=== PATIENT | male | born 1955 | race Caucasian/White ===

== ENCOUNTER 2023-01-18 12:56 | Outpatient (CLI) | payer MEDICARE, OTHER ==
[~2023-01-18 12:56] MED LIST: Iopamidol 370 76% 100 ML VIAL ONE
== END 2023-01-18 12:57 | disposition home or self-care (01) ==
LOC: ULT 12:56
PROVIDERS: ATTEND Urology
DX: C64.2 Malignant neoplasm of left kidney, except renal pelvis (principal); N43.3 Hydrocele, unspecified; K57.30 Diverticulosis of large intestine without perforation or abscess without bleeding; K43.9 Ventral hernia without obstruction or gangrene; Z90.5 Acquired absence of kidney
CPT/HCPCS: 71046; 74177; 76870; 82565; 93976; Q9967

== ENCOUNTER → 2023-05-05 | Outpatient (CLI) | payer MEDICARE, OTHER | LOC: PET 11:45 | PROVIDERS: ATTEND Internal Medicine Hematology & Oncology | DX: C16.3 Malignant neoplasm of pyloric antrum (principal) | CPT/HCPCS: 78815; A9552 ==

== ENCOUNTER 2023-05-31 17:55 | Inpatient (IN) | payer MEDICARE, OTHER ==
[2023-05-31] MEDS ORDERED: Aspirin Chewable 81 MG TAB ONE (18:30)
[2023-05-31] MEDS ORDERED: fentaNYL 50 mcg/mL 1 mL Vial ONE (18:37)
[2023-05-31] MEDS ORDERED: Ondansetron PF 4 MG/2 ML Vial ONE (18:37)
[2023-05-31 18:49] LABS: #Monocytes 1.4 thou/uL (0.11-0.59); #Neutrophils 6.4 thou/uL (1.40-6.50); %Basophils 0.1 % (0.0-1.0); %Lymphocytes 19.8 % (21.0-51.0); %Monocytes 14.6 % (0.0-10.0); %Neutrophils 65.1 % (42.0-75.0); Hemoglobin 13.7 g/dL (14.0-18.0); Mean Corpuscular HGB CONC 32.6 g/dL (32.0-36.0); Mean Corpuscular Hemoglobin 30.8 pg (27.0-31.0); Mean Corpuscular Volume 94.4 fl (78.0-98.0); Mean Platelet Volume 10.1 fL (7.4-10.4); Platelet Count 203 10x3/uL (130-400); RBC Distribution Width 13.5 % (11.5-14.5); Red Blood Cell (RBC) Count 4.45 mill/uL (4.70-6.10); White Blood Cell (WBC) Count 9.8 10x3/uL (4.8-10.8)
[2023-05-31 19:27] LABS: Anion Gap 14 mmol/L (10-20); BUN (Urea Nitrogen) 26 mg/dL (8.4-25.7); Calc. Creatinine Clearance 0 mL/min (70-130); Calcium 8.9 mg/dL (7.8-10.44); Carbon Dioxide 29 mmol/L (23-31); Chloride 101 mmol/L (98-107); Estimated GFR 64; Glucose 150 mg/dL (80-115); Potassium 3.8 mmol/L (3.5-5.1); Sodium 140 mmol/L (136-145)
[2023-05-31 19:31] LABS: Troponin I 0.081 ng/mL (< 0.028)
[2023-05-31] MEDS ORDERED: Ondansetron ODT 4 MG TAB SL PRN (19:45)
[2023-05-31] MEDS ORDERED: Nitroglycerin 50 MG/250 ML BOT 250 ML IVPB SCH (19:45)
[2023-05-31] MEDS ORDERED: Acetaminophen 325 MG TAB PO PRN ×2 (19:45→20:28)
[2023-05-31] MEDS ORDERED: Ondansetron PF 4 MG/2 ML Vial IVP PRN (19:45)
[2023-05-31] MEDS ORDERED: Senokot S 8.6-50 MG TAB PO PRN (20:28)
[2023-05-31] MEDS ORDERED: Ondansetron ODT 4 MG TAB PO PRN (20:28)
[2023-05-31] MEDS ORDERED: Enoxaparin 100 MG (1 mL) SYRINGE ONE (21:48)
[2023-05-31 23:32] LABS: Troponin I 0.096 ng/mL (< 0.028)
[2023-05-31] MEDS: Famotidine 20 MG TAB PO SCH (23:50)
[2023-06-01 03:45] LABS: #Monocytes 1.1 thou/uL (0.11-0.59); %Basophils 0.1 % (0.0-1.0); %Lymphocytes 24.3 % (21.0-51.0); %Monocytes 16.6 % (0.0-10.0); %Neutrophils 58.7 % (42.0-75.0); Hematocrit 37.3 % (42.0-52.0); Hemoglobin 12.4 g/dL (14.0-18.0); Mean Corpuscular HGB CONC 33.2 g/dL (32.0-36.0); Mean Corpuscular Hemoglobin 31.6 pg (27.0-31.0); Mean Corpuscular Volume 95.2 fl (78.0-98.0); Mean Platelet Volume 10.2 fL (7.4-10.4); Platelet Count 162 10x3/uL (130-400); RBC Distribution Width 13.7 % (11.5-14.5); Red Blood Cell (RBC) Count 3.92 mill/uL (4.70-6.10); White Blood Cell (WBC) Count 6.8 10x3/uL (4.8-10.8)
[2023-06-01 04:12] LABS: Troponin I 0.106 ng/mL (< 0.028)
[2023-06-01 04:13] LABS: Anion Gap 15 mmol/L (10-20); BUN (Urea Nitrogen) 31 mg/dL (8.4-25.7); Calc. Creatinine Clearance 78 mL/min (70-130); Calcium 8.4 mg/dL (7.8-10.44); Carbon Dioxide 28 mmol/L (23-31); Chloride 103 mmol/L (98-107); Estimated GFR 52; Glucose 114 mg/dL (80-115); Potassium 3.6 mmol/L (3.5-5.1); Sodium 142 mmol/L (136-145)
[2023-06-01 06:14] VITALS: BMI 35.6
[2023-06-01] MEDS: Famotidine 20 MG TAB PO SCH (08:00)
[2023-06-01] MEDS ORDERED: Iopamidol-370 76% 500 ML MDV (1 ML CHARGE) ONE (10:51)
[2023-06-01] MEDS ORDERED: Enoxaparin 120 MG/0.8 ML SYRINGE SC SCH ×2 (12:00→21:00)
[2023-06-01] MEDS ORDERED: Aspirin 81 mg Enteric Coated Tablet PO SCH (12:00)
[2023-06-01] MEDS: Lactated Ringer's 1,000 ML IV SCH ×2 (12:09→16:21)
[2023-06-01] MEDS: Ondansetron PF 4 MG/2 ML Vial IVP PRN ×2 (13:17→23:18)
[2023-06-01] MEDS: Morphine 2 MG/ML VIAL SLOW IVP PRN ×4 (13:17→23:16)
[2023-06-01] MEDS ORDERED: Pantoprazole 40 MG VIAL IVP SCH (14:00)
[2023-06-01] MEDS ORDERED: Communication Order-Pharmacy FS SCH (14:00)
[2023-06-01] MEDS: Nitroglycerin 50 MG/250 ML BOT 250 ML IVPB SCH (15:30)
[2023-06-01] MEDS ORDERED: Prochlorperazine Edisylate 10 MG in Sodium Chloride 0.9% 50 ML IVPB PRN (15:54)
[2023-06-01] MEDS: Carvedilol 6.25 MG TAB PO SCH (16:20)
[2023-06-01] MEDS: Simvastatin 10 MG TAB PO SCH (20:54)
[2023-06-01] MEDS: Pantoprazole 40 MG VIAL IVP SCH (20:55)
[2023-06-02] MEDS: Nitroglycerin 50 MG/250 ML BOT 250 ML IVPB SCH (00:21)
[2023-06-02] MEDS: Lactated Ringer's 1,000 ML IV SCH ×2 (00:38→09:31)
[2023-06-02] MEDS: Morphine 2 MG/ML VIAL SLOW IVP PRN ×2 (04:28→10:50)
[2023-06-02] MEDS ORDERED: Sodium Chloride 0.9% 1,000 ML IV SCH ×2 (06:00→08:08)
[2023-06-02] MEDS: Carvedilol 6.25 MG TAB PO SCH ×2 (06:17→17:51)
[2023-06-02 06:28] LABS: #Monocytes 0.8 thou/uL (0.11-0.59); #Neutrophils 3.1 thou/uL (1.40-6.50); %Basophils 0.2 % (0.0-1.0); %Lymphocytes 20.7 % (21.0-51.0); %Monocytes 15.7 % (0.0-10.0); %Neutrophils 63.2 % (42.0-75.0); Hematocrit 32.5 % (42.0-52.0); Hemoglobin 10.6 g/dL (14.0-18.0); Mean Corpuscular HGB CONC 32.6 g/dL (32.0-36.0); Mean Corpuscular Hemoglobin 31.2 pg (27.0-31.0); Mean Corpuscular Volume 95.6 fl (78.0-98.0); Mean Platelet Volume 10.7 fL (7.4-10.4); Platelet Count 104 10x3/uL (130-400); RBC Distribution Width 13.7 % (11.5-14.5)
[2023-06-02 06:35] LABS: Hemoglobin A1c 5.5 % (4.0-6.0)
[2023-06-02] MEDS ORDERED: fentaNYL 50 mcg/mL 1 mL Vial ONE (06:41)
[2023-06-02] MEDS ORDERED: Heparin 10,000 UNITS/ 10 ML VIAL ONE (06:41)
[2023-06-02] MEDS ORDERED: Midazolam HCl 2 mg/2 ml Vial ONE (06:41)
[2023-06-02 06:54] LABS: ALT (SGPT) 12 U/L (8-55); AST (SGOT) 11 U/L (5-34); Albumin 3.3 g/dL (3.4-4.8); Alkaline Phosphatase 62 U/L (40-110); Anion Gap 13 mmol/L (10-20); BUN (Urea Nitrogen) 36 mg/dL (8.4-25.7); Bilirubin, Direct 0.6 mg/dL (0.1-0.3); Bilirubin, Total 1.3 mg/dL (0.2-1.2); Calc. Creatinine Clearance 95 mL/min (70-130); Calcium 7.7 mg/dL (7.8-10.44); Carbon Dioxide 24 mmol/L (23-31); Cardiac Risk 2.3 (Less than 4.5); Chloride 105 mmol/L (98-107); Cholesterol 90 mg/dl (< 200 Desired); Estimated GFR 66; Glucose 109 mg/dL (80-115); HDL Cholesterol 39 mg/dL (>60 Neg Risk); LDL Cholesterol, Calculated 41 mg/dL; Magnesium 1.6 mg/dL (1.6-2.6); Potassium 3.3 mmol/L (3.5-5.1); Protein, Total 5.5 g/dL (5.8-8.1); Sodium 139 mmol/L (136-145); Triglycerides 50 mg/dL (Less than 150)
[2023-06-02] MEDS ORDERED: Protamine Sulfate 50 MG/5 ML VIAL ONE (07:50)
[2023-06-02] MEDS ORDERED: Acetaminophen/Codeine 30-300mg Tablet PO PRN ×2 (08:07)
[2023-06-02] MEDS ORDERED: Nitroglycerin 0.4 MG TAB (25 Tab Bottle) SL PRN (08:07)
[2023-06-02] MEDS ORDERED: Sodium Chloride 0.9% 200 ML IV PRN (08:07)
[2023-06-02] MEDS ORDERED: Nitroglycerin 50 MG/250 ML BOT 250 ML IVPB SCH (08:16)
[2023-06-02] MEDS ORDERED: [UNRECOGNIZED DRUG - OTHER] PO SCH (09:00)
[2023-06-02] MEDS ORDERED: OMEPRAZOLE PO SCH (09:00)
[2023-06-02] MEDS ORDERED: SODIUM BICARBONATE PO SCH (09:00)
[2023-06-02] MEDS: Pantoprazole 40 MG VIAL IVP SCH ×2 (09:39→19:28)
[2023-06-02] MEDS: Aspirin 81 mg Enteric Coated Tablet PO SCH (09:39)
[2023-06-02] MEDS: Ondansetron PF 4 MG/2 ML Vial IVP PRN (10:48)
[2023-06-02] MEDS ORDERED: Iopamidol 370 76% 100 ML VIAL ONE (11:42)
[2023-06-02] MEDS ORDERED: Calcium Carbonate 500 MG ChewTAB PO PRN (14:14)
[2023-06-02] MEDS: Sacubitril 49 MG/Valsartan 51 MG TABLET PO SCH (19:27)
[2023-06-02] MEDS ORDERED: Enoxaparin 40 MG (0.4 mL) SYRINGE SC SCH (21:00)
[2023-06-02] MEDS: Simvastatin 10 MG TAB PO SCH (22:05)
[2023-06-03 05:56] LABS: #Monocytes 0.5 thou/uL (0.11-0.59); #Neutrophils 3.4 thou/uL (1.40-6.50); %Basophils 0.2 % (0.0-1.0); %Neutrophils 64.6 % (42.0-75.0); Hemoglobin 11.2 g/dL (14.0-18.0); Mean Corpuscular HGB CONC 32.9 g/dL (32.0-36.0); Mean Corpuscular Hemoglobin 31.5 pg (27.0-31.0); Mean Corpuscular Volume 95.5 fl (78.0-98.0); Platelet Count 104 10x3/uL (130-400); RBC Distribution Width 13.3 % (11.5-14.5); Red Blood Cell (RBC) Count 3.56 mill/uL (4.70-6.10); White Blood Cell (WBC) Count 5.2 10x3/uL (4.8-10.8)
[2023-06-03 06:43] LABS: Anion Gap 12 mmol/L (10-20); BUN (Urea Nitrogen) 28 mg/dL (8.4-25.7); Calc. Creatinine Clearance 135 mL/min (70-130); Calcium 8.1 mg/dL (7.8-10.44); Carbon Dioxide 26 mmol/L (23-31); Chloride 106 mmol/L (98-107); Estimated GFR 94; Glucose 97 mg/dL (80-115); Potassium 3.5 mmol/L (3.5-5.1); Sodium 140 mmol/L (136-145)
[2023-06-03] MEDS ORDERED: Potassium Chloride 20 MEQ TAB PO SCH (08:15)
[2023-06-03] MEDS ORDERED: Sacubitril 24MG/Valsartan 26 MG TAB PO SCH ×2 (10:30→21:00)
[2023-06-03] MEDS: Pantoprazole 40 MG VIAL IVP SCH (10:58)
[2023-06-03] MEDS: Aspirin 81 mg Enteric Coated Tablet PO SCH (10:58)
[2023-06-03] MEDS: Carvedilol 6.25 MG TAB PO SCH (11:06)
[2023-06-03] MEDS: Sacubitril 49 MG/Valsartan 51 MG TABLET PO SCH (11:40)
[2023-06-03 12:04] VITALS: BP 138/87; TEMP 97.9
== END 2023-06-03 15:00 | disposition home or self-care (01) | DRG 375 ==
LOC: ERS 17:55 → CCU 21:10 → 2NO 06-02 20:06
PROVIDERS: ADMIT Student in an Organized Health Care Education/Training Program; ATTEND Hospitalist
PROC: 4A023N7 Measurement of Cardiac Sampling and Pressure, Left Heart, Percutaneous Approach (ICD-10-PCS; principal; 2023-06-02)
PROC: B2151ZZ Fluoroscopy of Left Heart using Low Osmolar Contrast (ICD-10-PCS; 2023-06-02)
PROC: B2111ZZ Fluoroscopy of Multiple Coronary Arteries using Low Osmolar Contrast (ICD-10-PCS; 2023-06-02)
DX: C16.9 Malignant neoplasm of stomach, unspecified (principal); I20.0 Unstable angina; N17.9 Acute kidney failure, unspecified; I11.0 Hypertensive heart disease with heart failure; I50.9 Heart failure, unspecified; K21.9 Gastro-esophageal reflux disease without esophagitis; Z98.890 Other specified postprocedural states; F41.9 Anxiety disorder, unspecified; E78.00 Pure hypercholesterolemia, unspecified
CPT/HCPCS: 0439T; 36415; 71275; 80048; 80061; 80076; 83036; 83735; 83880; 84443; 84484; 85025; 85347; 85379; 93005; 93010; 93306; 93458; 93798; 94760; 99152; C1769; C9113; J0780; J1642; J1644; J1650; J2250; J2272; J2405; J2720; J3010; J7050; J7120; Q0162

== ENCOUNTER 2023-06-15 00:28 | Inpatient (IN) | payer MEDICARE, OTHER ==
[2023-06-15 01:07] LABS: #Monocytes 0.7 thou/uL (0.11-0.59); %Basophils 0.4 % (0.0-1.0); %Lymphocytes 17.4 % (21.0-51.0); %Monocytes 15.8 % (0.0-10.0); %Neutrophils 66.2 % (42.0-75.0); Hematocrit 34.8 % (42.0-52.0); Mean Corpuscular HGB CONC 34.5 g/dL (32.0-36.0); Mean Corpuscular Hemoglobin 31.9 pg (27.0-31.0); Mean Corpuscular Volume 92.6 fl (78.0-98.0); Mean Platelet Volume 9.8 fL (7.4-10.4); Platelet Count 146 10x3/uL (130-400); RBC Distribution Width 13.8 % (11.5-14.5); Red Blood Cell (RBC) Count 3.76 mill/uL (4.70-6.10); White Blood Cell (WBC) Count 4.5 10x3/uL (4.8-10.8)
[2023-06-15 01:32] LABS: ALT (SGPT) 19 U/L (8-55); AST (SGOT) 15 U/L (5-34); Albumin 3.7 g/dL (3.4-4.8); Alkaline Phosphatase 64 U/L (40-110); Anion Gap 14 mmol/L (10-20); BUN (Urea Nitrogen) 24 mg/dL (8.4-25.7); Bilirubin, Total 1.1 mg/dL (0.2-1.2); Calc. Creatinine Clearance 0 mL/min (70-130); Calcium 8.1 mg/dL (7.8-10.44); Carbon Dioxide 22 mmol/L (23-31); Chloride 107 mmol/L (98-107); Estimated GFR 61; Globulin 2.5 g/dL (2.4-3.5); Glucose 117 mg/dL (80-115); Magnesium 1.2 mg/dL (1.6-2.6); Potassium 3.4 mmol/L (3.5-5.1); Protein, Total 6.2 g/dL (5.8-8.1); Sodium 140 mmol/L (136-145)
[2023-06-15 01:37] LABS: Troponin I 0.063 ng/mL (< 0.028)
[2023-06-15] MEDS ORDERED: Potassium Chloride 20 MEQ TAB ONE (04:15)
[2023-06-15] MEDS ORDERED: Aspirin Chewable 81 MG TAB ONE (04:15)
[2023-06-15] MEDS ORDERED: Potassium Chloride 20 MEQ (100 mL) BAG ONE (04:15)
[2023-06-15] MEDS ORDERED: Magnesium 2 GM/50 ML BAG (IN WATER) ONE (04:17)
[2023-06-15 04:49] LABS: Bacteria/HPF None Seen HPF (None Seen); Bilirubin Negative (Negative); Blood, Urine Negative (Negative); CAUTI Indications for Culture Alt mental st,lethar; Clarity Clear (Clear); Glucose, Urine (Dipstick) Normal (Negative); Ketone, Urine Negative (Negative); Leukocyte Negative Leu/uL (Negative); Nitrite Negative (Negative); Protein, Urine (Dipstick) Negative (Neg-Trace); RBC/HPF None Seen HPF (0-3); Specific Gravity, Urine 1.017 (1.002-1.036); Squamous Epithelial None Seen HPF (0-3); Urobilinogen Normal mg/dL (Less than 2); WBC/HPF 0-3 HPF (0-3); pH, Urine 5.5 (5.0-9.0)
[2023-06-15 04:52] LABS: Urine Culture Reflex No No
[2023-06-15] MEDS ORDERED: Carvedilol 6.25 MG TAB ONE (05:19)
[2023-06-15] MEDS ORDERED: Metoprolol Tartrate 5 MG (5 mL) VIAL ONE (05:19)
[2023-06-15 06:07] LABS: Critical Call Chem Troponin I NUR.MB20 @0607
[2023-06-15 06:23] VITALS: BMI 29.6
[2023-06-15] MEDS: Carvedilol 6.25 MG TAB PO SCH (06:26)
[2023-06-15] MEDS: Aspirin 81 mg Enteric Coated Tablet PO SCH (06:27)
[2023-06-15 08:19] LABS: Anion Gap 12 mmol/L (10-20); BUN (Urea Nitrogen) 24 mg/dL (8.4-25.7); Calc. Creatinine Clearance 77 mL/min (70-130); Carbon Dioxide 23 mmol/L (23-31); Chloride 105 mmol/L (98-107); Estimated GFR 62; Glucose 111 mg/dL (80-115); Magnesium 2.1 mg/dL (1.6-2.6); Potassium 3.9 mmol/L (3.5-5.1); Sodium 136 mmol/L (136-145)
[2023-06-15 08:31] LABS: Critical Call Chem Troponin I RESULT DECREASING; Troponin I 0.564 ng/mL (< 0.028)
[2023-06-15] MEDS ORDERED: Sucralfate 1 GM/10 ML UDCUP ONE (08:39)
[2023-06-15] MEDS ORDERED: Enoxaparin 40 MG (0.4 mL) SYRINGE ONE (08:40)
[2023-06-15] MEDS: Enoxaparin 40 MG (0.4 mL) SYRINGE SC SCH (08:47)
[2023-06-15] MEDS: Sucralfate 1 GM TAB PO SCH (08:48)
[2023-06-15] MEDS ORDERED: Iopamidol-370 76% 500 ML MDV (1 ML CHARGE) ONE (11:04)
[2023-06-15] MEDS: Enoxaparin 60 MG (0.6 mL) SYRINGE SC SCH (12:37)
[2023-06-15] MEDS: FLU VACC QS2023(65UP)/MF59C/PF 60 MCG/0.5 ML SYRINGE IM ONE (12:57)
[2023-06-15] MEDS: Dextrose 50% Abboject 50 ML SYRINGE ONE (17:51)
[2023-06-15] MEDS: Calcium Carbonate 500 MG ChewTAB PO PRN (17:53)
[2023-06-15] MEDS: Atorvastatin Calcium 40 MG TAB PO SCH (21:14)
[2023-06-15] MEDS: Enoxaparin 100 MG (1 mL) SYRINGE SC SCH (21:14)
[2023-06-16 05:45] LABS: Anion Gap 9 mmol/L (10-20); BUN (Urea Nitrogen) 30 mg/dL (8.4-25.7); Calc. Creatinine Clearance 87 mL/min (70-130); Calcium 8.3 mg/dL (7.8-10.44); Carbon Dioxide 29 mmol/L (23-31); Chloride 107 mmol/L (98-107); Estimated GFR 71; Glucose 102 mg/dL (80-115); Magnesium 2.1 mg/dL (1.6-2.6); Potassium 4.2 mmol/L (3.5-5.1); Sodium 141 mmol/L (136-145)
[2023-06-16 09:04] LABS: Troponin I 0.182 ng/mL (< 0.028)
[2023-06-16] MEDS ORDERED: Ondansetron PF 4 MG/2 ML Vial IVP PRN (16:56)
[2023-06-16] MEDS ORDERED: Promethazine 25 MG TAB PO PRN (17:09)
[2023-06-16] MEDS: Amiodarone 200 MG TAB PO SCH (18:07)
[2023-06-16] MEDS: ALPRAZolam 0.5 MG TAB PO SCH (20:49)
[2023-06-17 06:03] LABS: Anion Gap 12 mmol/L (10-20); BUN (Urea Nitrogen) 34 mg/dL (8.4-25.7); Calc. Creatinine Clearance 80 mL/min (70-130); Calcium 8.4 mg/dL (7.8-10.44); Carbon Dioxide 28 mmol/L (23-31); Chloride 104 mmol/L (98-107); Estimated GFR 65; Glucose 102 mg/dL (80-115); Magnesium 2.1 mg/dL (1.6-2.6); Potassium 3.9 mmol/L (3.5-5.1); Sodium 140 mmol/L (136-145)
[2023-06-17] MEDS: Amiodarone 200 MG TAB PO SCH ×2 (08:40→22:32)
[2023-06-17] MEDS ORDERED: Promethazine 25 MG TAB PO PRN (10:15)
[2023-06-17] MEDS: Digoxin 0.125 MG TAB PO SCH (18:55)
[2023-06-17] MEDS: Sacubitril 24MG/Valsartan 26 MG TAB PO SCH (22:29)
[2023-06-17] MEDS: Apixaban 5 MG TAB PO SCH (22:31)
[2023-06-18] MEDS: Digoxin 0.125 MG TAB PO SCH (09:11)
[2023-06-18] MEDS: Furosemide 20 MG TAB PO SCH (09:14)
[2023-06-18 18:39] LABS: Anion Gap 11 mmol/L (10-20); BUN (Urea Nitrogen) 39 mg/dL (8.4-25.7); Calc. Creatinine Clearance 80 mL/min (70-130); Calcium 8.2 mg/dL (7.8-10.44); Carbon Dioxide 27 mmol/L (23-31); Chloride 104 mmol/L (98-107); Estimated GFR 64; Glucose 92 mg/dL (80-115); Magnesium 1.6 mg/dL (1.6-2.6); Potassium 3.9 mmol/L (3.5-5.1); Sodium 138 mmol/L (136-145)
[2023-06-19 08:28] LABS: #Monocytes 0.4 thou/uL (0.11-0.59); #Neutrophils 1.6 thou/uL (1.40-6.50); %Basophils 0.6 % (0.0-1.0); %Eosinophils 0.3 % (0.0-10.0); %Lymphocytes 43.9 % (21.0-51.0); %Monocytes 10.5 % (0.0-10.0); %Neutrophils 44.1 % (42.0-75.0); Hematocrit 33.2 % (42.0-52.0); Hemoglobin 11.4 g/dL (14.0-18.0); Mean Corpuscular HGB CONC 34.3 g/dL (32.0-36.0); Mean Corpuscular Hemoglobin 31.8 pg (27.0-31.0); Mean Corpuscular Volume 92.5 fl (78.0-98.0); Mean Platelet Volume 10.7 fL (7.4-10.4); Platelet Count 135 10x3/uL (130-400); RBC Distribution Width 13.2 % (11.5-14.5); Red Blood Cell (RBC) Count 3.59 mill/uL (4.70-6.10); White Blood Cell (WBC) Count 3.5 10x3/uL (4.8-10.8)
[2023-06-19 09:00] LABS: ALT (SGPT) 19 U/L (8-55); AST (SGOT) 16 U/L (5-34); Albumin 3.6 g/dL (3.4-4.8); Alkaline Phosphatase 61 U/L (40-110); Anion Gap 10 mmol/L (10-20); BUN (Urea Nitrogen) 31 mg/dL (8.4-25.7); Bilirubin, Total 0.7 mg/dL (0.2-1.2); Calc. Creatinine Clearance 95 mL/min (70-130); Carbon Dioxide 29 mmol/L (23-31); Chloride 104 mmol/L (98-107); Estimated GFR 80; Globulin 2.4 g/dL (2.4-3.5); Glucose 101 mg/dL (80-115); Potassium 3.7 mmol/L (3.5-5.1); Sodium 139 mmol/L (136-145)
[2023-06-19 16:52] VITALS: BP 143/89; TEMP 97.6
== END 2023-06-19 19:00 | disposition home or self-care (01) | DRG 280 ==
LOC: ERS 00:28 → ERHOLD 04:04 → 2SE 09:16 → OBSVTOIN 11:13
PROVIDERS: ADMIT Internal Medicine; ATTEND Internal Medicine
PROC: 4A10X4Z Monitoring of Central Nervous Electrical Activity, External Approach (ICD-10-PCS; principal; 2023-06-16)
DX: I25.111 Atherosclerotic heart disease of native coronary artery with angina pectoris with documented spasm (principal); G93.41 Metabolic encephalopathy; I21.A1 Myocardial infarction type 2; C16.9 Malignant neoplasm of stomach, unspecified; I50.32 Chronic diastolic (congestive) heart failure; C16.3 Malignant neoplasm of pyloric antrum; I48.0 Paroxysmal atrial fibrillation; I11.0 Hypertensive heart disease with heart failure; E83.42 Hypomagnesemia; T45.1X5A Adverse effect of antineoplastic and immunosuppressive drugs, initial encounter; E87.6 Hypokalemia; K21.9 Gastro-esophageal reflux disease without esophagitis; D63.8 Anemia in other chronic diseases classified elsewhere; Z90.5 Acquired absence of kidney; Z98.890 Other specified postprocedural states; Z79.82 Long term (current) use of aspirin; Z79.899 Other long term (current) drug therapy
CPT/HCPCS: 0439T; 36415; 70450; 70551; 71045; 71275; 80048; 80053; 81001; 82248; 83615; 83735; 84100; 84484; 84550; 85025; 93005; 95711; 95819; 96365; 96366; 96375; G0378; J1650; J3475; J3480; Q9967

== ENCOUNTER 2024-04-10 12:25 | Outpatient (CLI) | payer MEDICARE, OTHER | END 2024-04-10 12:26 | disposition home or self-care (01) | LOC: CT 12:25 | PROVIDERS: ATTEND Internal Medicine Hematology & Oncology | DX: C16.3 Malignant neoplasm of pyloric antrum (principal); K42.9 Umbilical hernia without obstruction or gangrene; Z90.49 Acquired absence of other specified parts of digestive tract | CPT/HCPCS: 36415; 71260; 74177; 82565 ==